=== PATIENT | female | born 1995 | race Hispanic/Latino ===

== ENCOUNTER 2020-04-06 13:52 | Emergency (ER) | payer OTHER, SELFPAY ==
[2020-04-06] VITALS (9 sets, daily range): BP systolic 105–120; BP diastolic 63–76; PULSE 92–101; RESP 15–30; TEMP 36.7; O2SAT 96–100
--- NOTE | ~2020-04-06 | CT_ITS ---
EXAMINATION: CTA chest PE protocol DATE: 04/06/2020 17:38 INDICATION: Shortness of breath, five months TECHNIQUE: Computed tomography angiography (CTA) of the chest was performed with 100 mL Omnipaque-350 intravenous contrast timed to evaluate the pulmonary arteries. Coronal maximum intensity projection 3D-reconstructions were created by the technologist. The dose-length product (DLP) was 404.03 mGy-cm. Automated exposure control and iterative reconstruction technique were employed. COMPARISON: None. FINDINGS: The pulmonary arteries are well-opacified. Respiratory motion artifact slightly limits eval uation of subsegmental peripheral pulmonary arterial branches. No central pulmonary embolism is ident ified. Patchy airspace opacities are present throughout the lungs. There is no pleural effusion or pn eumothorax. No pathologically enlarged thoracic lymph nodes are identified. The heart size is normal. The visualized osseous structures are unremarkable. IMPRESSION: 1. Multifocal pneumonia. No evidence of pulmonary embolism. Reviewed, dictated and finalized at location A.
--- NOTE | ~2020-04-06 | US_ITS ---
EXAMINATION: US venous doppler LE EXAM DATE: 04/06/2020 15:00 INDICATION: Shortness of breath. Leg weakness. TECHNIQUE: Multiple grayscale, color flow and Doppler images of the lower extremity deep venous syste ms bilaterally were obtained and reviewed. There is no prior study for comparison. FINDINGS: Right side: The right common femoral, femoral and profunda veins demonstrate normal color flow, respi ratory variation, augmentation and compressibility. Compressibility, color flow confirmed within the right popliteal, posterior tibial, peroneal, and greater saphenous veins. Left side: The left common femoral, femoral and profunda veins demonstrate normal color flow, respira tory variation, augmentation and compressibility. Compressibility, color flow confirmed within the l eft popliteal, posterior tibial, peroneal, and greater saphenous veins. IMPRESSION: 1. No lower extremity deep venous thrombosis bilaterally. Reviewed, dictated and finalized at location B.
--- NOTE | ~2020-04-06 | XR_ITS ---
XR chest 2V DATE: 04/06/2020 16:05 INDICATION: Shortness of breath. Loss of appetite. Headache for 1.5 weeks. TECHNIQUE: PA and lateral views COMPARISON: None FINDINGS: There are patchy infiltrates and/atelectasis primarily in both mid and lower lung zones. Normal heart size. No pleural effusion or pulmonary vascular congestion or pneumothorax. Included skeletal structures are unremarkable. IMPRESSION: Patchy bilateral infiltrate and/or atelectasis primarily in the mid and lower lung zones Reviewed, dictated and finalized at location A.
--- NOTE | 2020-04-06 14:00 | PC.NURSE ---
Per VORB from [facility] Mo abdominal pain protocol to be started in triage.
[2020-04-06 14:08] LABS: Basophils Percent Auto 0.3 % (0.2-1.2); Eosinophils Percent Auto 0.2 % (0-4.4); Hematocrit 36.4 % (37.0-47.0); Immature Granulocyte Absolute 0.04 K/mm3 (0.00-0.031); Immature Granulocyte Percent A 0.7 % (0-0.5); Lymphocytes Absolute Auto 1.57 K/mm3 (0.9-3.2); Lymphocytes Percent Auto 26.1 % (18.3-44.2); Mean Corpuscular Hemoglobin 29.3 pg (26-34); Mean Corpuscular Volume 88.8 fl (80-100); Mean Platelet Volume 9.7 fl (7.4-10.4); Monocytes Absolute Auto 0.3 K/mm3 (0.1-0.6); Monocytes Percent Auto 4.8 % (2.6-8.5); Neutrophils Absolute Auto 4.1 K/mm3 (1.3-6.7); Neutrophils Percent Auto 67.9 % (45.5-73.1); Platelet Count Result 215 k/mm3 (150-375)
[2020-04-06 14:19] LABS: Alanine Aminotransferase 43 U/L (4-35); Albumin Level 3.9 g/dL (3.5-5.1); Alkaline Phosphatase 181 U/L (38-126); Aspartate Amino Transferase 30 U/L (14-36); Bilirubin,Total 0.4 mg/dL (0.2-1.3); Blood Urea Nitrogen 7 mg/dL (7-17); Calcium 8.4 mg/dL (8.4-10.2); Carbon Dioxide 22 mmol/L (22-30); Chloride 101 mmol/L (98-107); Estimated Glomerular Filt Rate > 60; Glucose 131 mg/dL (65-105); Lipase 84 U/L (23-300); Potassium 3.7 mmol/L (3.4-5.0); Sodium 134 mmol/L (137-145)
--- NOTE | 2020-04-06 14:39 | PC.NURSE ---
Pt to ultrasound via wheelchair.
--- NOTE | 2020-04-06 14:42 | ED.GENADULT ---
HPI - General Adult General Chief complaint: Headache <Jennifer Blanca MD - Last Filed: 04/12/20 07:04> Stated complaint: weakness, no appetite <Jennifer Blanca MD - Last Filed: 04/12/20 07:04> Time Seen by Provider: 04/06/20 14:12 <Jennifer Blanca MD - Last Filed: 04/12/20 07:04> Source: patient <Jennifer Blanca MD - Last Filed: 04/12/20 07:04> Mode of arrival: ambulatory <Jennifer Blanca MD - Last Filed: 04/12/20 07:04> Limitations: no limitations <Jennifer Blanca MD - Last Filed: 04/12/20 07:04> History of Present Illness HPI narrative: This patient is a 24 year old female who 5 months who presents for evaluation decreased appetite and shortness of breath starting 1.5 weeks ago. She denies cough, fever, or chills. She just states she can not get herself to ER. She has not abdominal pain , diarrhea or vomiting. She does complain of intermittent headache likely from not eating. She denies any issues with such as vaginal bleeding, pain or spotting. Her OB is Dr. Thompson in [place], [place]. <Jennifer Blanca MD - Last Filed: 04/12/20 07:04> Related Data Allergies/adverse reactions: Allergies Allergy/AdvReac Type Severity Reaction Status Date / Time No Known Allergies Allergy Unverified 09/14/15 17:22 <Jennifer Blanca MD - Last Filed: 04/12/20 07:04> Review of Systems Review of Systems: All systems reviewed & are unremarkable except as noted in HPI and below <Jennifer Blanca MD - Last Filed: 04/12/20 07:04> Constitutional: Constitutional: Denies chills and Denies fever(s) <Jennifer Blanca MD - Last Filed: 04/12/20 07:04> Eyes: Eyes: Reports no additional eye complaints <Jennifer Blanca MD - Last Filed: 04/12/20 07:04> ENT: Denies sore throat <Jennifer Blanca MD - Last Filed: 04/12/20 07:04> Cardiovascular: Cardiovascular: Denies chest pain and Denies radiating jaw, neck or arm pain <Jennifer Blanca MD - Last Filed: 04/12/20 07:04> Respiratory: Respiratory: Denies cough and Reports dyspnea <Jennifer Blanca MD - Last Filed: 04/12/20 07:04> Gastrointestinal: Gastrointestinal: Denies abdominal pain, Denies diarrhea, Denies nausea and Denies vomiting <Jennifer Blanca MD - Last Filed: 04/12/20 07:04> Genitourinary: Genitourinary: Denies abnormal vaginal bleeding, Denies nocturia, Denies dysuria, Denies urinary incontinence and Denies vaginal discharge <Jennifer Blanca MD - Last Filed: 04/12/20 07:04> Neurologic: Reports headache(s), Denies focal weakness and Denies numbness <Jennifer Blanca MD - Last Filed: 04/12/20 07:04> PMFSH Past Medical History Medical History: Medical History (Updated 04/07/20 @ 00:00 by Yuriy Albarran) Patient denies medical problems <Jennifer Blanca MD - Last Filed: 04/12/20 07:04> Surgical History Surgical History: Surgical History (Updated 04/06/20 @ 14:43 by Jennifer Blanca MD) No pertinent past surgical history <Jennifer Blanca MD - Last Filed: 04/12/20 07:04> Social History Social History: Social History (Updated 04/06/20 @ 14:44 by Jennifer Blanca MD) Smoking status: Never smoker Gender identity (if verbalized by the patient): Female <Jennifer Blanca MD - Last Filed: 04/12/20 07:04> Exam Narrative: Exam Narrative: GENERAL: appears to not feel well, well-nourished, HEAD: Normocephalic, atraumatic EYES: PERRLA and EOMI, conjunctiva clear without discharge EARS: TM's clear bilaterally without erythema or dullness NOSE: Nares clear, no rhinorrhea or epistaxis THROAT:Mucous membranes moist, Oropharynx normal without erythema, exudate, peritonsillar swelling or fluctuance NECK: Supple, without lymphadenopathy or mass RESPIRATORY: No respiratory distress, tachypnea Airway patent, Respirations non-labored, Clear to auscultation without rales, rhonchi or wheeze HEART: Regular rate and rhythm. No murmur heard. Normal perip
[2020-04-06 14:45] LABS: Add Urine Microscopic? YES; Amorphous Sediment Urine Few; Appearance Urine Cloudy (Clear); Bacteria Urine Trace /hpf; Bilirubin Urine Negative (Negative); Blood Urine Negative (Negative); Color Urine Amber (Yellow); Glucose Urine UA Negative (Negative); Ketones Urine Negative (Negative); Leukocyte Esterase Ur 3+ LEU/UL (Negative); Mucus Urine Rare /lpf; Nitrate Urine Negative (Negative); Protein Urine 1+ mg/dL (Negative); Specific Grav Ur 1.021 (1.001-1.035); Squamous Epithelial Cell Urine Many /hpf (Few); WBC Urine 31-50 /hpf
--- NOTE | 2020-04-06 15:11 | ECG_ITS ---
Measurements Intervals [place] Rate: 91 P: 50 WA: 160 QRS: 47 QRSD: 94 T: -2 QT: 340 QTc: 419 Interpretive Statements SINUS RHYTHM BORDERLINE ST-T WAVE ABNORMALITY- ANT/INF LEADS BORDERLINE ECG Electronically Signed On 04-06-2020 16:10:24 CDT by Carrington Liu D.O.
[2020-04-06] MEDS: DEXTROSE 5%/LACTATED RINGERS 1,000 ML 1000 ML IV CONT (15:21)
--- NOTE | 2020-04-06 15:58 | PC.NURSE ---
Pt to XRAY via stretcher.
[2020-04-06 17:04] LABS: Alveolar/Arterial O2 Gradient 38.3 mmHg; Base Excess ABG -0.6 mEq/l (+/-2.0); Carboxyhemoglobin 0.3 % THb (0-2.0); Fractional Inspired Oxygen 21 %; HCO3 ABG 22.5 mEq/l (22.0-26.0); Methemoglobin ABG 0.4 %THb (0-1.5); Oxygen Content ABG 15.8 %vol (16.0-22.0); Oxygen Saturation ABG 95.6 % (95.0-100.0); Oxyhemoglobin 93.4 % THb (90.0-100.0); PCO2 ABG 32.2 mmHg (35.0-45.0); PO2 ABG 72.9 mmHg (80.0-100.0); PO2 FiO2 Ratio Arterial Blood 3.47 %; Reduced Hemoglobin 5.9 %THb (0-5.0); Site Drawn LEFT RADIAL; pH ABG 7.462 (7.350-7.450)
[2020-04-06 17:05] LABS: Device ROOM AIR; Modified Allen's Test Pass
[2020-04-06 17:16] LABS: Lactate Dehydrogenase 355 U/L (313-618)
[2020-04-06 17:29] LABS: Troponin I < 0.012 ng/mL (0.000-0.034)
--- NOTE | 2020-04-06 21:58 | PC.NURSE ---
Lele called at [phone] to transport patient. Lele here at [phone]
[2020-04-07 13:23] LABS: SARS-CoV-2 RNA PCR Positive
== END 2020-04-06 22:07 | disposition short-term general hospital (02) ==
PROVIDERS: Emergency Medicine Emergency Medical Services; Emergency Provider General Practice
DX: O98.519 Other viral diseases complicating pregnancy, unspecified trimester (principal); U07.1 COVID-19; J12.89 Other viral pneumonia; Z3A.00 Weeks of gestation of pregnancy not specified
CPT/HCPCS: 36415; 36600; 71046; 71275; 80053; 81001; 82375; 82728; 82805; 83050; 83615; 83690; 84484; 85025; 87040; 87086; 87088; 87635; 87804; 93005; 93970; 96361; 96365; 96367; 99285; C9803; J0456; J0696; J7121; Q9967; U0003

== ENCOUNTER 2023-01-19 18:01 | Emergency (ER) | payer SELFPAY ==
[2023-01-19] VITALS (18 sets, daily range): BP systolic 105–133; BP diastolic 61–84; PULSE 77–100; RESP 16–18; TEMP 36.7; O2SAT 98–100
[2023-01-19 18:33] LABS: Basophils Absolute Auto 0.1 K/mm3 (0.0-0.1); Basophils Percent Auto 0.4 % (0.2-1.2); Eosinophils Absolute Auto 0.2 K/mm3 (0-0.3); Eosinophils Percent Auto 1.4 % (0-4.4); Hemoglobin 12.1 g/dL (12.0-15.0); Immature Granulocyte Absolute 0.04 K/mm3 (0.00-0.031); Immature Granulocyte Percent A 0.3 % (0-0.5); Lymphocytes Absolute Auto 2.21 K/mm3 (0.9-3.2); Lymphocytes Percent Auto 18.7 % (18.3-44.2); Mean Corpuscular HGB Conc 32.7 g/dl (32-36); Mean Corpuscular Hemoglobin 28.5 pg (26-34); Mean Corpuscular Volume 87.3 fl (80-100); Mean Platelet Volume 9.4 fl (7.4-10.4); Monocytes Absolute Auto 0.9 K/mm3 (0.1-0.6); Monocytes Percent Auto 7.5 % (2.6-8.5); Neutrophils Absolute Auto 8.5 K/mm3 (1.3-6.7); Neutrophils Percent Auto 71.7 % (45.5-73.1); Platelet Count Result 301 k/mm3 (150-375); Red Blood Count 4.24 M/mm3 (4.2-5.4); Red Cell Distribution Width 13.8 % (11.5-14.5); White Blood Count 11.8 K/mm3 (4.5-10.0)
[2023-01-19 18:43] LABS: Alanine Aminotransferase 43 U/L (6-35); Albumin Level 4.3 g/dL (3.5-5.1); Alkaline Phosphatase 89 U/L (38-126); Anion Gap 6 mmol/L (8-16); Aspartate Amino Transferase 31 U/L (14-36); Bilirubin,Total 0.5 mg/dL (0.2-1.3); Blood Urea Nitrogen 7 mg/dL (7-17); Calcium 9.2 mg/dL (8.4-10.2); Carbon Dioxide 27 mmol/L (22-30); Chloride 103 mmol/L (98-107); Estimated Glomerular Filt Rate > 60; Glucose 96 mg/dL (65-110); Lipase 40 U/L (23-300); Potassium 4.2 mmol/L (3.4-5.0); Sodium 136 mmol/L (137-145)
[2023-01-19 20:15] LABS: Appearance Urine Cloudy (Clear); Bacteria Urine 4+ /hpf; Bilirubin Urine Negative (Negative); Blood Urine Negative (Negative); Color Urine Yellow (Yellow); Glucose Urine UA Negative (Negative); Hyaline Casts Urine Present /lpf; Ketones Urine Negative (Negative); Leukocyte Esterase Ur 2+ LEU/UL (Negative); Nitrate Urine Positive (Negative); Non Pathogenic Casts 0-2; Protein Urine Negative (Negative); Specific Grav Ur 1.015 (1.001-1.035); Squamous Epithelial Cell Urine Occasional /hpf (Few); Urobilinogen Urine 0.2 mg/dL (<2.0); WBC Urine >100 /hpf
[2023-01-19 20:21] LABS: Add Urine Microscopic? YES
--- NOTE | 2023-01-19 20:47 | ED.GENADULT ---
HPI - General Adult General Chief complaint: Nausea/Vomiting/Diarrhea Stated complaint: N/V, 10 WEEKS Time Seen by Provider: 01/19/23 20:30 History of Present Illness HPI narrative: This is a 27-year-old presenting w/ nausea and vomiting. patient has been having morning sickness throughout the presence he has been treating it with B6 and doxylamine. However today she has been nauseous but has had no appetite. She has also noted she has increased urinary frequency and urgency. She also developed a bitemporal headache which is her typical headache except worsening intensity. Patient denies any abdominal pain, vaginal bleeding or discharge. She has been in contact with her OBGYN office who sent her to the ER for evaluation. She denies fever, chills, chest pain difficulty breathing Related Data Allergies Allergy/AdvReac Type Severity Reaction Status Date / Time No Known Allergies Allergy Verified 01/19/23 20:59 [facility] Past Medical History Medical History H/O cholecystitis Patient denies medical problems Surgical History Surgical History No pertinent past surgical history Social History Social History Smoking status: Never smoker Gender identity (if verbalized by the patient): Female Exam Narrative: APPEARANCE: No apparent distress. Head: atraumatic. EYES: EOMI, NOSE: Atraumatic NECK: Trachea midline RESPIRATORY: No increased rate of breathing, clear to auscultation CARDIOVASCULAR: RRR, ABDOMINAL: Non-distended, nontender no guarding or rebound. MUSCULOSKELETAl: No obvious deformities NEURO: Alert. Moving 4/4 extremities SKIN:: Warm, dry. Normal color PSYCHIATRIC: Normal affect Point of care transabdominal OB ultrasound revealed a fetus inside the uterus with a normal heart rate. Course Vital Signs Vital signs: Vital Signs Temperature 98.0 F 01/19/23 18:12 Pulse Rate 100 01/19/23 18:12 Respiratory Rate 18 01/19/23 18:12 Blood Pressure 133/67 01/19/23 18:12 Pulse Oximetry 99 01/19/23 18:12 Temperature 98.0 F 01/19/23 18:12 Pulse Rate 86 01/19/23 21:00 Respiratory Rate 16 01/19/23 21:00 Blood Pressure 118/84 01/19/23 21:00 Pulse Oximetry 100 01/19/23 21:[address] [facility] Narrative Medical decision making narrative: -Presentation: 27-year-old female presenting ED with nausea vomiting headache and urinary symptoms. -DDX includes but is not limited to: Hyperemesis gravidarum, dehydration, urinary tract infection, tension headache -Co-morbidities complicating care: -Social determinants of health: patient stays at home and takes care of her children, lives with her fiance -External Chart Review: none -Hx from independent Sources: friend at bedside -Discussion of Management/Consultants: none -Independent interpretation of studies: white blood cell count slightly elevated 11.8. Hemoglobin was normal. Metabolic panel was within normal limits. Urinalysis was positive for greater than 100 white blood cells, urine nitrates and leuk esterase patient. Patient has no CVA tenderness and is not afebrile. consistent with UTI. Patient will be treated with Keflex. Dx tests considered but not ordered: Patient does not have abdominal pain, vaginal discharge or vaginal bleeding. No indication for transvaginal ultrasound this time. -Procedures: -Interventions: 2 L D5 normal saline, doxylamine, promethazine, Tylenol, Keflex -Shared decision making / Disposition: Patient was feeling better after fluid right rehydration and anti-nausea meds. She is tolerating p.o.. Her vital signs are normal. Patient will be discharged on a course of Keflex. She has been instructed to follow-up with her OBGYN and sure that her UTI has cleared. She has been g
[2023-01-19] MEDS: PROMETHAZINE HCL 25 MG/ML AMPUL 12.5 MG IV PUSH (20:54)
[2023-01-19] MEDS: PYRIDOXINE HCL 100 MG/ML VIAL (*SPC) 25 MG IV PUSH (21:30)
[2023-01-19] MEDS: DEXTROSE 5%/0.9% SOD CHL 1,000 ML 999 ML IV CONT ×2 (21:33→22:40)
[2023-01-19] MEDS: ACETAMINOPHEN 500 MG TABLET 1000 MG PO (21:39)
[2023-01-19] MEDS: CEPHALEXIN 500 MG CAPSULE PO (21:39)
== END 2023-01-19 23:47 | disposition home or self-care (01) ==
PROVIDERS: Emergency Medicine; Emergency Provider Emergency Medicine
DX: O23.41 Unspecified infection of urinary tract in pregnancy, first trimester (principal); N39.0 Urinary tract infection, site not specified; O21.9 Vomiting of pregnancy, unspecified; O26.891 Other specified pregnancy related conditions, first trimester; R51.9 Headache, unspecified; Z3A.10 10 weeks gestation of pregnancy
CPT/HCPCS: 36415; 80053; 81001; 83690; 85025; 87077; 87086; 87186; 96361; 96374; 96375; 99284; A9270; J2550; J3415; J7042

== ENCOUNTER 2023-04-05 16:33 | Observation (INO) | payer BC, SELFPAY ==
[2023-04-05 16:50] VITALS: TEMP 36.6
[2023-04-05 16:53] VITALS: BP 120/77; PULSE 81
[2023-04-05 17:00] VITALS: BP 115/67; PULSE 90
[2023-04-05 17:15] VITALS: BP 108/66; PULSE 79
--- NOTE | 2023-04-05 17:36 | OBADM ---
This patient, Kate Lloyd, admitted to the OB room OB Post 117 for observation. Patient/family oriented to hospital policies and general routines including ID bracelet, bed and alarms, visiting hours, pain management, procedures, bathroom and other care routines, personal items, smoking policy, room service/diet, and visiting hours. Patient/Family are encouraged to report perceived risks to care and to ask questions if they do not understand what they are told or what they should do.
--- NOTE | 2023-04-05 17:40 | PC.NURSE ---
1700--Pt c/o pain in navel when palpated;has been diagnosed with UTI and taken 2 doses of antibiotic. Reminded pt to follow up with OB if pain persists.
--- NOTE | 2023-05-02 23:40 | PM.OBTRLD ---
OB - Triage/Final Diagnosis Visit Information Comments/Additional reasons for admission: I have assessed the risk for this patient, Kate Lloyd, and determined that she would benefit from observation care. Final Diagnosis (1) Abdominal pain: Code(s): R10.9 - Unspecified abdominal pain Status: Acute
== END 2023-04-05 17:46 | disposition home or self-care (01) ==
LOC: ANHOBPP 16:39
PROVIDERS: Admitting Provider Obstetrics & Gynecology; Visit Provider Obstetrics & Gynecology
DX: O26.892 Other specified pregnancy related conditions, second trimester (principal); R10.9 Unspecified abdominal pain; Z3A.22 22 weeks gestation of pregnancy
CPT/HCPCS: G0378; G0379

== ENCOUNTER 2023-08-02 02:05 | Inpatient (IN) | payer OTHER, SELFPAY ==
[2023-08-02] VITALS (105 sets, daily range): BP systolic 100–146; BP diastolic 41–101; PULSE 63–196; RESP 16; TEMP 36.2–37.1; O2SAT 94–100; BMI 35.3
--- NOTE | 2023-08-02 02:37 | LDADM ---
This patient, Kate Lloyd, was admitted to Labor/Delivery/Recovery 109 on 08/02/23 at 02:05. Plans for labor, pain management and were discussed with patient. Patient/family oriented to hospital policies and general routines including ID bracelet, bed and alarms, visiting hours, pain management, procedures, bathroom and other care routines, personal items, smoking policy, room service/diet and guest tray routines, security routines, and visiting hours. Patient/Family are encouraged to report perceived risks to care and to ask questions if they do not understand what they are told or what they should do. See OBIX for further documentation.
[2023-08-02 02:47] LABS: Basophils Percent Auto 0.4 % (0.2-1.2); Eosinophils Absolute Auto 0.1 K/mm3 (0-0.3); Eosinophils Percent Auto 1.2 % (0-4.4); Hematocrit 32.7 % (37.0-47.0); Hemoglobin 9.9 g/dL (12.0-15.0); Immature Granulocyte Absolute 0.07 K/mm3 (0.00-0.031); Immature Granulocyte Percent A 0.6 % (0-0.5); Lymphocytes Absolute Auto 2.57 K/mm3 (0.9-3.2); Lymphocytes Percent Auto 23.1 % (18.3-44.2); Mean Corpuscular HGB Conc 30.3 g/dl (32-36); Mean Corpuscular Hemoglobin 25.4 pg (26-34); Mean Corpuscular Volume 83.8 fl (80-100); Mean Platelet Volume 10.7 fl (7.4-10.4); Monocytes Absolute Auto 0.6 K/mm3 (0.1-0.6); Monocytes Percent Auto 5.5 % (2.6-8.5); Neutrophils Absolute Auto 7.7 K/mm3 (1.3-6.7); Neutrophils Percent Auto 69.2 % (45.5-73.1); Nucleated Red Blood Cells Perc 0.2 % (0.0-0.2); Platelet Count Result 266 k/mm3 (150-375); Red Cell Distribution Width 15.4 % (11.5-14.5); White Blood Count 11.1 K/mm3 (4.5-10.0)
[2023-08-02] MEDS: LACTATED RINGERS 1,000 ML 125 ML IV CONT ×3 (02:56→09:21)
[2023-08-02] MEDS: fentaNYL CITRATE INJ (*CRX) 100 MCG/2 ML VIAL 50 MCG IV PUSH (03:34)
--- NOTE | 2023-08-02 04:00 | WPDANESEPP ---
Anes - Eval Pre Procedure Procedure: Labor epidural Date/Time: 08/02/23 04:00 Surgeon: Cheyanne Preop Diagnosis: Abdominal pain with contractions Pre Op Diagnosis: Contractions/Leaking Patient Data Age: 28 Gender: F Height: 1.57 m Weight: 87.7 kg Last Vital Signs Pulse 86 08/02/23 03:30 BP 112/70 08/02/23 03:30 O2 Del Method Room Air 08/02/23 02:34 Allergies Allergy/AdvReac Type Severity Reaction Status Date / Time No Known Allergies Allergy Verified 08/02/23 02:48 Home Medications Medication Instructions Recorded Confirmed Type ferrous sulfate 325 mg (65 mg 325 mg PO DAILY 07/20/23 07/20/23 History iron) tablet levothyroxine 100 mcg tablet 100 mcg PO DAILY 07/20/23 08/02/23 History prenat.vits,fabienne,ozu-vqym-nazld 1 tablet 07/20/23 History Laboratory Tests 08/02/23 02:40 WBC 11.1 H K/mm3 (4.5-10.0) RBC 3.90 L M/mm3 (4.2-5.4) Hgb 9.9 L g/dL (12.0-15.0) Hct 32.7 L % (37.0-47.0) MCV 83.8 fl (80-100) MCH 25.4 L pg (26-34) MCHC 30.3 L g/dl (32-36) RDW 15.4 H % (11.5-14.5) Plt Count 266 k/mm3 (150-375) MPV 10.7 H fl (7.4-10.4) Immature Gran % (Auto) 0.6 H % (0-0.5) Neut % (Auto) 69.2 % (45.5-73.1) Lymph % (Auto) 23.1 % (18.3-44.2) Wheeler % (Auto) 5.5 % (2.6-8.5) Eos % (Auto) 1.2 % (0-4.4) Baso % (Auto) 0.4 % (0.2-1.2) Lymph # (Auto) 2.57 K/mm3 (0.9-3.2) Wheeler # (Auto) 0.6 K/mm3 (0.1-0.6) Eos # (Auto) 0.1 K/mm3 (0-0.3) Baso # (Auto) 0.0 K/mm3 (0.0-0.1) Abs Immat Gran (auto) 0.07 H K/mm3 (0.00-0.031) Absolute Neuts (auto) 7.7 H K/mm3 (1.3-6.7) Absolute Nucleated RBC 0.0 K/mm3 (0.0-0.012) Nucleated RBC % 0.2 % (0.0-0.2) RPR Pending Blood Type O Positive Antibody Screen Negative : gestational age HCG: positive Patient hx anesthesia problems: none Family hx anesthesia problems: none Results Review: All pre-operative results and documents have been reviewed as part of the pre-operative evaluation. [facility] Past Medical History Medical History H/O cholecystitis Patient denies medical problems and not yet delivered Surgical History Surgical History No pertinent past surgical history Family History Family History Son Asthma Grandparent Diabetes mellitus Grandparent Diabetes mellitus Social History Social History Smoking status: Never smoker Second hand tobacco smoke exposure: No Substance use: never Lack of Transportation: No Lack of Food: Never True Current Housing: I Have Housing Concerned About Future Housing: No Difficulty Paying Gas/Electric Bills: No Difficulty Paying for Meds: No Currently Unemployed: No Education: High School Diploma/GED Difficulty w/ Childcare or Family Care: No Gender identity (if verbalized by the patient): Female Spiritual care concerns: No Exam Day of Procedure 08/02/23 04:00 Patient weight: obese Heart: regular rate and rhythm Airway: Mallampati scale class II
--- NOTE | 2023-08-02 04:05 | WPDOBADMIT ---
Obstetrics - Admit Note Admission Note: record reviewed. No pertinent additions to the history and/or any subsequent changes in the physical findings that are not consistent with the expected course of the were found. pt arrived in labor, planning epidural, complicated by hypothyroidism, anemia, and circumvallate placenta, anticipate vaginal delivery Additions to the history and/or subsequent changes in the physical findings follow. None.
--- NOTE | 2023-08-02 08:39 | P.HPUP_ITS ---
History and Physical Update Update Date/Time: 08/02/23 08:39 28-year-old multiparous who presented in labor at term. 7 cm, 80%, ruptured membranes, clear, -2 reassuring heart tones, expecting, no Pitocin History and Physical has been reviewed, including an updated exam of the pa tient. There are NO changes in the patient's condition. Risks, benefits, and alternatives have been discussed and questions answered. Patient agrees to proceed with procedure.
[2023-08-02 09:17] LABS: Rapid Plasma Reagin Non-Reactive (NonReactive)
[2023-08-02] MEDS: OXYTOCIN 30 UNITS/NS 500 ML 30 UNITS/500 ML BAG 999 UNITS IV CONT (09:45)
--- NOTE | 2023-08-02 09:51 | PM.OBPRVD ---
OB - Delivery Note Procedure Delivery date: 08/02/23 Procedure: Induction method: None Route of delivery: Episiotomy description: None Laceration Description: None Specimen: No Quantitative Blood Loss (ml): 300 Baby Date of : 08/02/23 Time of : 09:42 Weeks of gestation at delivery: 39 gender: Male score one minute: 8 score five minutes: 9
[2023-08-02] MEDS: OXYTOCIN 30 UNITS/NS 500 ML 30 UNITS/500 ML BAG 125 UNITS IV CONT (10:30)
[2023-08-02] MEDS: COSYNTROPIN 0.25 MG/ML VIAL 1 MG IV PUSH (12:17)
--- NOTE | 2023-08-02 13:00 | OBPPTRN ---
Patient transferred to post room # 281 via wheelchair accompanied by spouse and Support person present. PT introductions made and plan of care discussed per post , pain management, breast feeding, daily care activities. No barriers to learning identified at this time. PT received such instructions per one to one discussion, mom baby care guide and demonstrations. Oriented to unit, room, information board, rooming in, admission packet and security measures. Patient verbalizes understanding.
[2023-08-02] MEDS: IBUPROFEN 600 MG TABLET PO ×2 (13:43→19:38)
[2023-08-02] MEDS: ACETAMINOPHEN 325 MG TABLET 650 MG PO ×2 (13:44→19:38)
[2023-08-02] MEDS: LANOLIN (LANSINOH) 7.5 GM CREAM 1 APPLIC TOPICAL (13:44)
[2023-08-02] MEDS: DOCUSATE SODIUM 100 MG CAPSULE PO (16:16)
[2023-08-02] MEDS: POLYSACCHARIDE IRON COMPLEX 150 MG CAPSULE PO (17:00)
[2023-08-03 00:24] VITALS: BP 119/69; PULSE 74; RESP 16; TEMP 36.7; O2SAT 99
[2023-08-03] MEDS: ACETAMINOPHEN 325 MG TABLET 650 MG PO ×3 (03:18→18:06)
[2023-08-03] MEDS: IBUPROFEN 600 MG TABLET PO ×3 (03:18→18:06)
[2023-08-03 05:33] LABS: Hematocrit 29.6 % (37.0-47.0)
[2023-08-03 07:30] VITALS: BP 139/83; PULSE 77; RESP 16; TEMP 36.8; O2SAT 99
--- NOTE | 2023-08-03 07:30 | PC.NURSE ---
PT introductions made and plan of care discussed per post , pain management, breast feeding, daily care activities. No barriers to learning identified at this time. PT received such instructions per one to one discussion, mom baby care guide and demonstrations this shift. Oriented to unit, room, information board, rooming in, admission packet and security measures. Patient verbalizes understanding.
--- NOTE | 2023-08-03 08:00 | PM.OBPNVD ---
OB - PN: Subj Subjective Date/time seen: 08/03/23 08:00 Interval history: PPD#1. Spinal headache, better with laying down. Will have anesthesia assess Some swelling at the bottom of her neck, pain with chin to chest and turning head to the right. Baby doing well. Bleeding minimal, voiding without issue. OB - PN: Obj Data Labs 08/03/23 05:11 Labs: Laboratory Results - last 24 hr 08/02/23 08/03/23 02:40 05:11 Hgb 9.0 L Hct 29.6 L RPR Non-reactive OB - PN A/P Assessment and Plan (1) Status post vaginal delivery: Status: Acute Assessment and Plan: PPD#1, doing well. Anesthesia to assess spinal headache. Continue ibuprofen for neck pain. Time Spent With Patient Time: Total time spent is greater than 50% in coordination of care (as documented) at patient's floor/unit and/or counseling patient: Review of Systems Review of Systems: All systems reviewed & are unremarkable except as noted in HPI and below Exam Narrative: No tenderness in neck or back, small amount of swelling at bottom of the neck,midline Const: General: comfortable, no acute distress, alert and awake Orientation/consciousness: patient oriented x3 Resp: Effort & Inspection: normal respiratory effort GI: GI Palp: Yes Soft to palpation
[2023-08-03 08:30] VITALS: PULSE 77; RESP 16; O2SAT 99
[2023-08-03] MEDS: LEVOTHYROXINE SODIUM 100 MCG TABLET PO (10:11)
[2023-08-03] MEDS: DOCUSATE SODIUM 100 MG CAPSULE PO ×2 (10:11→18:06)
[2023-08-03] MEDS: MULTIVIT/MIN/PREN/FOL AC/IRON TABLET 1 TAB PO (10:11)
[2023-08-03] MEDS: POLYSACCHARIDE IRON COMPLEX 150 MG CAPSULE PO ×2 (10:12→18:07)
[2023-08-03 11:00] VITALS: BP 139/83; PULSE 77; RESP 16; TEMP 36.8; O2SAT 99
--- NOTE | 2023-08-03 11:35 | PC.NURSE ---
anesthesia here to evaluate pt regarding headache.
--- NOTE | 2023-08-03 12:25 | WPDANLDPN2 ---
Anes-Prog Note L&D Date/Time: 08/03/23 12:25 Comfortable throughout: labor and delivery Neuraxial method: epidural Epidural/Spinal procedure site: tender Neuro status: Neuro function grossly intact. Cardiovascular status: normal Respiratory status: normal Airway patency: baseline Mental status: baseline Post-Op hydration status: normal Vital Signs: Last Vital Signs Temp 98.2 F 08/03/23 07:30 Pulse 77 08/03/23 07:30 Resp 16 08/03/23 07:30 BP 139/83 08/03/23 07:30 Pulse Ox 99 08/03/23 07:30 O2 Del Method Room Air 08/03/23 00:24 Pain score (VAS): 2 Post-procedural complaints: other Patient feedback: Patient satisfied with anesthetic care.Pt has known dural puncture, has been treated with cosysntropin, catheter left indwelling. Pt has mild headache, states resolves with ibuprofen and/or acetaminophen. Has had one cup of coffee this morning. Pt sitting up in bed without symptoms, states she is up and ambulating without distress. discussed continued conservative treatment. Pt agreeable. Will reassess need for blood patch if condition changes.
[2023-08-03 20:00] VITALS: BP 116/68; PULSE 75; RESP 16; TEMP 36.7; O2SAT 100
[2023-08-04] MEDS: ACETAMINOPHEN 325 MG TABLET 650 MG PO ×2 (00:53→08:00)
[2023-08-04] MEDS: IBUPROFEN 600 MG TABLET PO ×2 (00:54→08:00)
[2023-08-04] MEDS: DOCUSATE SODIUM 100 MG CAPSULE PO (08:00)
[2023-08-04] MEDS: MULTIVIT/MIN/PREN/FOL AC/IRON TABLET 1 TAB PO (08:00)
[2023-08-04] MEDS: LEVOTHYROXINE SODIUM 100 MCG TABLET PO (08:00)
[2023-08-04] MEDS: POLYSACCHARIDE IRON COMPLEX 150 MG CAPSULE PO (08:00)
--- NOTE | 2023-08-04 08:33 | PM.OBPNVD ---
OB - PN: Subj Subjective Date/time seen: 08/04/23 08:33 Interval history: PPD#2 Suspected wet tap, anesthesia recommends conservative management Neck pain improved throughout the day yesterday, some stiffness this morning. No fevers Baby doing well. Bleeding minimal, voiding without issue. Discharge home today OB - PN: Obj Data Labs 08/03/23 05:11 OB - PN A/P Plan day: 2 Plan: routine care, discharge home and follow up 6 weeks Time Spent With Patient Time: Total time spent is greater than 50% in coordination of care (as documented) at patient's floor/unit and/or counseling patient: Review of Systems Review of Systems: All systems reviewed & are unremarkable except as noted in HPI and below Exam Const: General: comfortable, no acute distress, alert and awake Resp: Effort & Inspection: normal respiratory effort
--- NOTE | 2023-08-04 08:57 | PM.OBDSVD ---
DS: Admitting Diagnosis Discharge Date 08/04/23 Admitting Diagnosis labor DS: Discharge Diagnosis Discharge Diagnosis (1) Status post vaginal delivery: Status: Acute Assessment and Plan: meeting milestones OB - DS: Summary OB Procedures : None OB Procedures Intrapartum: Spontaneous Vag Delivery OB Procedures: : None Time Spent with Patient Time attestation: Total time spent providing and/or coordinating discharge services: Discharge Plan Discharge Attending physician on discharge: Hunter Flores Discharging Clinician: Hunter Flores Patient Disposition: Home, Self-Care Activity: may shower and as tolerated Diet: as tolerated Patient Instructions: Antibiotic Form Stand Alone Forms: General Discharge Information Follow-up/Referrals: Genesis Edward MD [Physician] - 6 Weeks Discharge Medications: Continued levothyroxine 100 mcg Tablet 100 mcg PO DAILY ferrous sulfate 325 mg (65 mg iron) Tablet 325 mg PO DAILY #2 Tablet 1 tablet Date of admission: 08/02/23 02:05 Primary Care Provider: RoddyGillian Admitting Provider: Genesis Edward Attending physician on admission: Genesis Edward Condition: Stable
[2023-08-04 11:40] VITALS: BP 124/69; PULSE 72; RESP 20; TEMP 36.6; O2SAT 100
[2023-08-04] MEDS: oxyCODONE HCL (*CRX) 5 MG TAB IR PO (11:52)
[2023-08-06 09:43] VITALS: BP 130/80; PULSE 90; RESP 18; TEMP 37; O2SAT 100
== END 2023-08-04 12:30 | disposition home or self-care (01) | DRG 560 ==
LOC: ANHOB2 08-04 11:19 → ANHLDR 08-06 11:43 → ANHOB2 08-06 11:43
PROVIDERS: Admitting Provider Obstetrics & Gynecology; PCP Physician Assistant; Visit Provider Obstetrics & Gynecology
DX: O43.113 Circumvallate placenta, third trimester (principal); Z37.0 Single live birth; D64.9 Anemia, unspecified; Z3A.39 39 weeks gestation of pregnancy; O99.02 Anemia complicating childbirth; O99.284 Endocrine, nutritional and metabolic diseases complicating childbirth; E03.9 Hypothyroidism, unspecified; O89.4 Spinal and epidural anesthesia-induced headache during the puerperium
CPT/HCPCS: 36415; 84112; 85014; 85018; 85025; 86592; 86850; 86900; 86901; A9270; J0834; J2590; J2795; J3010; J7120

== ENCOUNTER 2023-08-06 10:06 | Outpatient (CLI) | payer OTHER, SELFPAY ==
[2023-08-06] VITALS (12 sets, daily range): BP systolic 126–148; BP diastolic 76–91; PULSE 58–74
--- NOTE | 2023-08-06 11:31 | WPDANESEBPP ---
Anes - Epidural Blood Patch PN Date/Time: 08/06/23 11:31 Consent: I have discussed with the patient/family/POA, the rationale of a lumbar epidural autologous blood patch for the treatment of post-dural puncture headache (spinal headache), including associated potential risks, benefits, complications and side effects. I have also discussed more conservative treatment options such as intravenous hydration, caffeine and non-prescription analgesics. The patient/family/POA, understand(s) and wish(es) to proceed with epidural autologous blood patch as treatment for the patient's post-dural puncture headache. Time-Out: A pre-procedural Time-Out was completed immediately before starting the procedure and confirmed: Patient Identification, Site, Procedure, Patient Position and the Availability of Requisite Equipment. Clinical Indications: PDPH Epidural Insertion Note Patient position: sitting Skin prep: chlorhexidine Needle: 18 gauge Tuohy-Schliff Technique: loss of resistance Skin anesthesia: lidocaine 1% Observations: tolerated well and other (pressure in buttock region noticed after blood fully injected in epidural space and when laying flat)
--- NOTE | 2023-08-06 12:44 | PC.NURSE ---
Dr Rojas notified that patient is feeling better. OK to dc home with precautions.
== END 2023-08-06 13:23 | disposition home or self-care (01) ==
LOC: ANHOBOP 10:15 → ANHOBPP 10:18
PROVIDERS: PCP Physician Assistant; Visit Provider Anesthesiology
DX: O13.9 Gestational [pregnancy-induced] hypertension without significant proteinuria, unspecified trimester (principal); Z3A.00 Weeks of gestation of pregnancy not specified
CPT/HCPCS: 62273; 99199